=== PATIENT | male | born 1970 | race Caucasian/White ===

== ENCOUNTER 2019-01-30 09:37 | Emergency (ER) | payer SELFPAY ==
[~2019-01-30 09:37] MED LIST: ALBU90OI6; AMOCLA875 PO; Aspir 8181 MG PO; BUSP10 PO; BUSP5 PO; CEPH500 PO; CLIN150 PO; DOCU100 PO; ERYT.5TO RIGHTEYE; HYDACE10B PO; HYDACE5 PO; HYDR1TAB94 PO; IBUP600 PO; NICO14TP TOP; NICO21TP; Naprosyn500 MG PO; PARO10 PO; PARO20 PO; ZYMAXID2.5 ML LEFTEYE
== END 2019-01-30 09:49 | disposition left against medical advice (07) ==
LOC: ER 09:37
DX: Z53.21 Procedure and treatment not carried out due to patient leaving prior to being seen by health care provider (principal); M25.531 Pain in right wrist

== ENCOUNTER 2020-12-26 21:06 | Emergency (ER) | payer OTHER ==
[~2020-12-26] VITALS: Ht 177.8 cm; Wt 74.8 kg
[2020-12-27] MEDS ORDERED: CEPH500 PO (00:47)
== END 2020-12-27 02:20 | disposition home or self-care (01) ==
LOC: ER 21:06
DX: S91.332A Puncture wound without foreign body, left foot, initial encounter (principal); W22.8XXA Striking against or struck by other objects, initial encounter; F17.290 Nicotine dependence, other tobacco product, uncomplicated; Z86.59 Personal history of other mental and behavioral disorders
CPT/HCPCS: 73630; 90471; 90714; 99283-25; A9270